=== PATIENT | male | born 1970 | race African-American/Black ===

== ENCOUNTER 2018-05-18 08:23 | Inpatient (IN) | payer OTHER ==
[2018-05-18 10:05] VITALS: BMI 21.7
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
[2018-05-18] MEDS ORDERED: MENTHOL/PHENOL 1 EACH UD MM PRN (10:58)
[2018-05-18] MEDS ORDERED: guaiFENesin/D-METHORPHAN HB 10 ML UNIT-DOSE CUPS PO PRN (10:58)
[2018-05-18] MEDS ORDERED: MAG HYDROX/AL HYDROX/SIMETH 30 ML UNIT-DOSE CUP PO PRN (10:58)
[2018-05-18] MEDS ORDERED: ACETAMINOPHEN 325 MG TABLET (FP) PO PRN (10:58)
[2018-05-18] MEDS ORDERED: P-EPHED 60MG/TRIPROLIDI 2.5MG TABLET PO PRN (10:58)
[2018-05-18] MEDS ORDERED: MAGNESIUM HYDROX 2400MG/30ML ORAL SUSPENSION 30 ML CUP PO PRN (10:58)
[2018-05-18] MEDS ORDERED: MAGNESIUM CITRATE 300 ML BOTTLE PO PRN (10:58)
[2018-05-18] MEDS: chlordiazePOXIDE HCL 25 MG CAPSULE PO PRN ×2 (12:01→19:41)
[2018-05-18] MEDS: ONDANSETRON *ODT* 4 MG TABLET SL PRN (12:04)
[2018-05-18] MEDS: IBUPROFEN 400 MG TABLET (FP) PO PRN ×2 (12:04→19:41)
--- NOTE | 2018-05-18 15:51 | EKG ---
Test Reason : Blood Pressure : / mmHG Vent. Rate : 063 BPM Atrial Rate : 063 BPM P-R Int : 144 ms QRS Dur : 094 ms QT Int : 444 ms P-R-T Axes : 075 068 062 degrees QTc Int : 454 ms NORMAL SINUS RHYTHM NORMAL ECG NO PREVIOUS ECGS AVAILABLE Confirmed by Aden Parkinson ([id number]) on 05/18/2018 3:51:18 PM Referred By: Confirmed By:Adne Parkinson
[2018-05-18] MEDS: chlordiazePOXIDE HCL 25 MG CAPSULE PO SCH ×2 (16:31→22:18)
[2018-05-18] MEDS: MELATONIN 5 MG TABLETS PO PRN (22:19)
[2018-05-18] MEDS: THIAMINE HCL 100 MG TABLET (FP) PO SCH (22:19)
[2018-05-19] MEDS: chlordiazePOXIDE HCL 25 MG CAPSULE PO SCH ×2 (06:31→10:42)
[2018-05-19 10:23] LABS: ALBUMIN 3.9 g/dl (3.4-5.0); ALK PHOS 89 U/L (45-117); ANION GAP 11 MMOL/L (8-16); BILIRUBIN,TOTAL 0.8 mg/dL (0.2-1); BLOOD UREA NITROGEN 8 mg/dL (7-18); CHLORIDE 102 mmol/L (98-107); CO2 29 mmol/L (21-32); CREATININE 0.8 mg/dL (0.55-1.3); GLUCOSE,RANDOM 81 mg/dL (74-106); POTASSIUM 3.7 mmol/L (3.5-5.1); SGOT/AST 178 U/L (15-37); SGPT/ALT 76 U/L (13-61); SODIUM 141 mmol/L (136-145)
[2018-05-19] MEDS: PRENATAL VITAMINS W/ FOLIC ACID TABLET (FP) PO SCH (10:42)
[2018-05-19 12:12] LABS: HEMATOCRIT 37.7 % (35.4-49); MCH 37.8 pg (25.7-33.7); MCHC 34.5 g/dl (32.0-35.9); MEAN CELL VOLUME 109.5 fl (80-96); PLATELET COUNT 207 K/MM3 (134-434); RBC 3.44 M/mm3 (4.00-5.60); RDW 14.5 % (11.9-15.9); WHITE BLOOD COUNT 3.7 K/mm3 (4.0-10.0)
[2018-05-19] MEDS: ONDANSETRON *ODT* 4 MG TABLET SL PRN (14:33)
[2018-05-19] MEDS ORDERED: LORazepam 1 MG TABLET PO PRN (15:44)
--- NOTE | 2018-05-19 15:50 | PN ---
S CIWA - CIWA Score Nausea/Vomitin Muscle Tremors: 1-None Visible, but [place] Anxiety: 1-Mildly Anxious Agitation: 0-Normal Activity Paroxysmal Sweats: No Perspiration Orientation: 0-Oriented Tacttile Disturbances: 0-None Auditory Disturbances: 0-None Visual Disturbances: 0-None Headache: 0-None Present CIWA-Ar Total Score: 4 BHS Progress Note (SOAP) Subjective: here for alcohol detox protocol, getting motrin for pain control O: Vital Signs - 24 hr 05/18/18 05/18/18 05/19/18 17:48 20:57 00:30 Temperature 96.3 F L 96.8 F L Pulse Rate 74 59 L Respiratory 18 16 18 Rate Blood Pressure 146/89 121/76 05/19/18 05/19/18 05/19/18 08:08 09:16 13:44 Temperature 98.1 F 97.9 F 98.2 F Pulse Rate 59 L 60 87 Respiratory 18 18 18 Rate Blood Pressure 131/88 133/80 113/81 Laboratory Tests 05/18/18 05/19/18 05/19/18 11:00 06:00 06:00 WBC 3.7 L RBC 3.44 L Hgb 13.0 Hct 37.7 MCV 109.5 H MCH 37.8 H MCHC 34.5 RDW 14.5 Plt Count 207 MPV 9.0 Sodium 141 Potassium 3.7 Chloride 102 Carbon Dioxide 29 Anion Gap 11 BUN 8 Creatinine 0.8 Creat Clearance w eGFR > 60 Random Glucose 81 Calcium 9.0 Total Bilirubin 0.8 AST 178 H ALT 76 H Alkaline Phosphatase 89 Total Protein 7.0 Albumin 3.9 RPR Titer HIV 1&2 Antibody Screen Negative HIV P24 Antigen Negative 05/19/18 06:00 WBC RBC Hgb Hct MCV MCH MCHC RDW Plt Count MPV Sodium Potassium Chloride Carbon Dioxide Anion Gap BUN Creatinine Creat Clearance w eGFR Random Glucose Calcium Total Bilirubin AST ALT Alkaline Phosphatase Total Protein Albumin RPR Titer Nonreactive HIV 1&2 Antibody Screen HIV P24 Antigen increased liver enzymes a/p: will switch from librium to ativan detox protocol b/c increased liver enzymes
[2018-05-19] MEDS ORDERED: chlordiazePOXIDE HCL 25 MG CAPSULE PO SCH (17:00)
[2018-05-19] MEDS: LORazepam 1 MG TABLET PO SCH ×2 (17:42→22:24)
[2018-05-19] MEDS: THIAMINE HCL 100 MG TABLET (FP) PO SCH (22:24)
[2018-05-19] MEDS: MELATONIN 5 MG TABLETS PO PRN (22:24)
[2018-05-19] MEDS: IBUPROFEN 400 MG TABLET (FP) PO PRN (22:25)
[2018-05-20] MEDS: LORazepam 1 MG TABLET PO SCH ×4 (07:34→22:20)
[2018-05-20] MEDS: PRENATAL VITAMINS W/ FOLIC ACID TABLET (FP) PO SCH (11:07)
[2018-05-20] MEDS ORDERED: LOPERAMIDE HCL 2 MG CAPSULE PO PRN (16:40)
--- NOTE | 2018-05-20 16:40 | PN ---
[facility] CIWA - CIWA Score Nausea/Vomitin-No Nausea/No Vomiting Muscle Tremors: None Anxiety: 3 Agitation: 2 Paroxysmal Sweats: 3 Orientation: 0-Oriented Tacttile Disturbances: 0-None Auditory Disturbances: 2-Mild Harshness/Frighten Visual Disturbances: 1-Very Mild Sensitivity Headache: 0-None Present CIWA-Ar Total Score: 11 S Progress Note (SOAP) Subjective: Anxious, Body Aches, Diarrhea, Sweating, Interrupted Sleep. Objective: PATIENT A & O X 3, OBSERVED AMBULATING ON UNIT. IN NO ACUTE DISTRESS. PATIENT DENIES CHEST PAIN. 05/20/18 16:37 Vital Signs Temperature 98.1 F 05/20/18 13:21 Pulse Rate 71 05/20/18 13:21 Respiratory Rate 18 05/20/18 13:21 Blood Pressure 115/80 05/20/18 13:21 O2 Sat by Pulse Oximetry (%) Laboratory Tests 05/18/18 05/19/18 05/19/18 11:00 06:00 06:00 WBC 3.7 L RBC 3.44 L Hgb 13.0 Hct 37.7 MCV 109.5 H MCH 37.8 H MCHC 34.5 RDW 14.5 Plt Count 207 MPV 9.0 Sodium 141 Potassium 3.7 Chloride 102 Carbon Dioxide 29 Anion Gap 11 BUN 8 Creatinine 0.8 Creat Clearance w eGFR > 60 Random Glucose 81 Calcium 9.0 Total Bilirubin 0.8 AST 178 H ALT 76 H Alkaline Phosphatase 89 Total Protein 7.0 Albumin 3.9 RPR Titer HIV 1&2 Antibody Screen Negative HIV P24 Antigen Negative 05/19/18 06:00 WBC RBC Hgb Hct MCV MCH MCHC RDW Plt Count MPV Sodium Potassium Chloride Carbon Dioxide Anion Gap BUN Creatinine Creat Clearance w eGFR Random Glucose Calcium Total Bilirubin AST ALT Alkaline Phosphatase Total Protein Albumin RPR Titer Nonreactive HIV 1&2 Antibody Screen HIV P24 Antigen LABS NOTED. Assessment: 05/20/18 16:37 WITHDRAWAL SYMPTOMS. Plan: CONTINUE DETOX. INCREASE DAILY PO FLUID INTAKE. REPEAT AST TOMORROW FOR ELEVATED ADMISSION LEVEL. NAPROXEN BID FOR BODY ACHES. PRN IMMODIUM PO FOR DIARRHEA.
[2018-05-20] MEDS ORDERED: chlordiazePOXIDE 5 MG CAPSULE PO SCH (17:00)
[2018-05-20] MEDS: NAPROXEN 500 MG TABLET (FP) PO SCH (18:04)
[2018-05-20] MEDS: THIAMINE HCL 100 MG TABLET (FP) PO SCH (22:20)
[2018-05-20] MEDS: MELATONIN 5 MG TABLETS PO PRN (22:20)
[2018-05-21] MEDS: LORazepam 1 MG TABLET PO SCH ×2 (05:24→10:16)
[2018-05-21 06:35] VITALS: TEMP 98.1
[2018-05-21 09:49] VITALS: BP 106/75; PULSE 70
[2018-05-21] MEDS: NAPROXEN 500 MG TABLET (FP) PO SCH (10:16)
[2018-05-21] MEDS: PRENATAL VITAMINS W/ FOLIC ACID TABLET (FP) PO SCH (10:16)
--- NOTE | 2018-05-21 11:04 | PN ---
BHS Progress Note (SOAP) Subjective: feeling very good Objective: 05/21/18 11:03 Vital Signs Temperature 98.1 F 05/21/18 09:49 Pulse Rate 70 05/21/18 09:49 Respiratory Rate 18 05/21/18 09:49 Blood Pressure 106/75 05/21/18 09:49 O2 Sat by Pulse Oximetry (%) aaox3 ambulating no acute distress Assessment: 05/21/18 11:04 no s/s of withdrawals Plan: d/c today. f/u with his PCP and psychiatrist for his aftercare
--- NOTE | 2018-05-21 11:08 | DS ---
[facility] Detox Discharge Summary Admission Date: 05/18/18 Discharge Date: 05/21/18 - History Present History: Alcohol Dependence, Cannabis Dependence, Cocaine Dependence - Physical Exam Results Vital Signs: Vital Signs Temperature 98.1 F 05/21/18 09:49 Pulse Rate 70 05/21/18 09:49 Respiratory Rate 18 05/21/18 09:49 Blood Pressure 106/75 05/21/18 09:49 O2 Sat by Pulse Oximetry (%) - Treatment Hospital Course: Detox Protocol Followed, Detoxed Safely, Responded well, Discharged Condition Good, Rehab Referral Accepted - Medication Discharge Medications: Ambulatory Orders NK [No Known Home Medication] 05/18/18 - Diagnosis (1) Alcohol dependence Current Visit: Yes Status: Acute Qualifiers: Substance use status: uncomplicated Qualified Code(s): F10.20 - Alcohol dependence, uncomplicated (2) Cannabis dependence Current Visit: Yes Status: Chronic (3) Cocaine dependence Current Visit: Yes Status: Chronic Qualifiers: Substance use status: uncomplicated Qualified Code(s): F14.20 - Cocaine dependence, uncomplicated (4) Nicotine dependence Current Visit: Yes Status: Chronic Qualifiers: Nicotine product type: cigarettes Substance use status: uncomplicated Qualified Code(s): F17.210 - Nicotine dependence, cigarettes, uncomplicated - AMA Did Patient Leave Against Medical Advice: No (going home will f/u pcp & psych)
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
[2018-05-21] MEDS ORDERED: chlordiazePOXIDE HCL 10 MG CAPSULE PO SCH (17:00)
[2018-05-22] MEDS ORDERED: LORazepam 2 MG TABLET PO ONE (06:00)
== END 2018-05-21 14:24 | disposition home or self-care (01) | DRG 774 ==
LOC: YASAS 08:23 → Y6N 11:27
PROVIDERS: ADMIT Neuromusculoskeletal Medicine & OMM; ATTEND Neuromusculoskeletal Medicine & OMM
PROC: HZ2ZZZZ Detoxification Services for Substance Abuse Treatment (ICD-10-PCS; principal; 2018-05-18)
DX: F10.230 Alcohol dependence with withdrawal, uncomplicated (principal); F14.20 Cocaine dependence, uncomplicated; F12.20 Cannabis dependence, uncomplicated; F17.210 Nicotine dependence, cigarettes, uncomplicated; F19.282 Other psychoactive substance dependence with psychoactive substance-induced sleep disorder; F25.9 Schizoaffective disorder, unspecified; R94.5 Abnormal results of liver function studies; Z88.6 Allergy status to analgesic agent
CPT/HCPCS: 36415; 80053; 84450; 85027; 86593; 87389; 93005; 93010; Q0162